=== PATIENT | male | born 1970 | race Caucasian/White ===

== ENCOUNTER 2018-03-03 14:49 | Inpatient (IN) | payer BC ==
[~2018-03-03] VITALS: Ht 160 cm; Wt 119.8 kg
[2018-03-03] MEDS ORDERED: METOPROLOL TARTRATE 5MG/5ML VIAL IV SCH (17:30)
[2018-03-03 18:03] LABS: CHLORIDE 104 mEq/L (98-107)
[2018-03-03 18:04] LABS: BASOPHILS % 0.6 % (0.0-2.0); EOSINOPHILS % 0.8 % (0.0-5.0); HEMATOCRIT. 44.9 % (42.0-52.0); HEMOGLOBIN. 14.7 g/dL (14.0-18.0); LYMPHOCYTES % 26.9 % (20.0-50.0); MEAN CORPUSCULAR HEMOGLOBIN 28.2 pg (28.0-32.0); MEAN CORPUSCULAR VOLUME 86.4 fL (80.0-94.0); MEAN PLATELET VOLUME 9.5 fl (7.4-10.4); MONOCYTES % 9.2 % (2.0-8.0); NEUTROPHILS % 62.5 % (40.0-76.0); PLATELET 346 x1000/uL (130-400); RED CELL DISTRIBUTION WIDTH 14.5 % (11.6-14.6)
[2018-03-03] MEDS ORDERED: ASPIRIN 81MG TABLET PO ONE (19:00)
[2018-03-03 22:00] VITALS: BP 115/90
[2018-03-03 22:12] VITALS: BP 115/90
[2018-03-04] VITALS: BP 110/82
[2018-03-04] MEDS ORDERED: ACETAMINOPHEN 650MG/20.3ML UDC PO PRN (01:00)
[2018-03-04] MEDS ORDERED: HYDROCODONE/ACETAMINOPHEN 5/325MG TABLET PO PRN (01:00)
[2018-03-04] MEDS ORDERED: ENOXAPARIN 40MG/0.4ML SYR SUBCUT ONE (01:45)
[2018-03-04] MEDS: METOPROLOL TARTRATE 50MG TABLET PO SCH ×3 (01:56→21:06)
[2018-03-04] MEDS: ENOXAPARIN 120MG/0.8ML SYR SUBCUT SCH ×2 (02:24→17:41)
[2018-03-04] MEDS: CEFTRIAXONE 1 G PREMIX 50 ML IV SCH (02:25)
[2018-03-04 04:00] VITALS: BP 108/91
[2018-03-04 07:06] LABS: BASOPHILS % 1.3 % (0.0-2.0); EOSINOPHILS % 0.9 % (0.0-5.0); HEMATOCRIT. 42.6 % (42.0-52.0); HEMOGLOBIN. 13.8 g/dL (14.0-18.0); LYMPHOCYTES % 27.3 % (20.0-50.0); MEAN CORPUSCULAR HEMOGLOBIN 28.1 pg (28.0-32.0); MEAN CORPUSCULAR VOLUME 86.6 fL (80.0-94.0); MEAN PLATELET VOLUME 9.9 fl (7.4-10.4); MONOCYTES % 10.1 % (2.0-8.0); NEUTROPHILS % 60.4 % (40.0-76.0); PLATELET 369 x1000/uL (130-400); RED BLOOD CELL COUNT 4.92 mill/uL (4.7-6.1); RED CELL DISTRIBUTION WIDTH 14.9 % (11.6-14.6)
[2018-03-04 07:18] LABS: CHLORIDE 103 mEq/L (98-107)
[2018-03-04 07:39] LABS: LDL CHOLESTEROL 85 mg/dL (5-100)
[2018-03-04 07:43] LABS: HDL CHOLESTEROL 25 mg/dL (40-59)
[2018-03-04 07:47] LABS: VITAMIN B12 SERUM 649 pg/mL (211-911)
[2018-03-04 08:29] VITALS: BP 114/86
[2018-03-04] MEDS: ASPIRIN 81MG TABLET PO SCH (08:48)
[2018-03-04] MEDS ORDERED: ENOXAPARIN 40MG/0.4ML SYR SUBCUT SCH (09:00)
[2018-03-04] MEDS ORDERED: ENOXAPARIN 30MG/0.3ML SYR SUBCUT SCH (09:00)
[2018-03-04 12:00] VITALS: BP 113/80
[2018-03-04 16:00] VITALS: BP 109/75
[2018-03-04] MEDS: FUROSEMIDE 40MG/4ML VIAL IVP SCH ×2 (17:40→21:05)
[2018-03-04 20:00] VITALS: BP 124/74
[2018-03-04 21:20] LABS: *AMPHETAMINES SCREEN URINE NEGATIVE (NEGATIVE); *BARBITURATES SCREEN URINE NEGATIVE (NEGATIVE); *BENZODIAZEPINES SCREEN URINE NEGATIVE (NEGATIVE); *COCAINE SCREEN URINE NEGATIVE (NEGATIVE); METHADONE URINE SCREEN NEGATIVE (NEGATIVE); OPIATES URINE SCREEN NEGATIVE (NEGATIVE); PHENCYCLIDINE URINE SCREEN NEGATIVE (NEGATIVE)
[2018-03-04 21:21] LABS: CANNABINOID URINE SCREEN NEGATIVE (NEGATIVE)
[2018-03-05] VITALS: BP 107/74
[2018-03-05] MEDS: ENOXAPARIN 120MG/0.8ML SYR SUBCUT SCH ×2 (01:08→17:03)
[2018-03-05] MEDS: CEFTRIAXONE 1 G PREMIX 50 ML IV SCH (03:56)
[2018-03-05 04:00] VITALS: BP 114/72
[2018-03-05] MEDS: FUROSEMIDE 40MG/4ML VIAL IVP SCH ×2 (07:13→17:03)
[2018-03-05 07:24] LABS: D-DIMER 0.48 mg/L FEU (<0.50); INR 1.2; PROTHROMBIN TIME 11.9 sec (9.1-11.1)
[2018-03-05 07:25] LABS: BASOPHILS % 1.1 % (0.0-2.0); EOSINOPHILS % 0.6 % (0.0-5.0); HEMATOCRIT. 44.4 % (42.0-52.0); HEMOGLOBIN. 14.6 g/dL (14.0-18.0); LYMPHOCYTES % 29.1 % (20.0-50.0); MEAN CORPUSCULAR HEMOGLOBIN 28.2 pg (28.0-32.0); MEAN CORPUSCULAR VOLUME 85.8 fL (80.0-94.0); MEAN PLATELET VOLUME 9.1 fl (7.4-10.4); MONOCYTES % 10.7 % (2.0-8.0); NEUTROPHILS % 58.5 % (40.0-76.0); PLATELET 329 x1000/uL (130-400); RED BLOOD CELL COUNT 5.17 mill/uL (4.7-6.1); RED CELL DISTRIBUTION WIDTH 14.3 % (11.6-14.6)
[2018-03-05 07:47] LABS: CHLORIDE 100 mEq/L (98-107)
[2018-03-05 08:16] LABS: CREATINE KINASE 43 IU/L (39-308)
[2018-03-05 08:17] LABS: CREATINE KINASE MB FRACTION 1.1 ng/mL (0.5-3.6); HDL CHOLESTEROL 26 mg/dL (40-59)
[2018-03-05 08:19] LABS: LDL CHOLESTEROL 80 mg/dL (5-100)
[2018-03-05 08:25] VITALS: BP 120/93
[2018-03-05] MEDS: METOPROLOL TARTRATE 50MG TABLET PO SCH (08:27)
[2018-03-05] MEDS: ASPIRIN 81MG TABLET PO SCH (08:27)
[2018-03-05 11:55] VITALS: BP 92/68
[2018-03-05] MEDS ORDERED: REGADENOSON 0.4 MG/5 ML IV NR (14:45)
[2018-03-05 16:46] VITALS: BP 118/88
[2018-03-05] MEDS: LOSARTAN POTASSIUM 25 MG TABLET PO SCH (17:04)
[2018-03-05 20:00] VITALS: BP 115/80
[2018-03-05] MEDS: CARVEDILOL 6.25 MG TABLET PO SCH (20:57)
[2018-03-06] VITALS: BP 112/70
[2018-03-06] MEDS: ENOXAPARIN 120MG/0.8ML SYR SUBCUT SCH ×2 (03:01→17:00)
[2018-03-06] MEDS: CEFTRIAXONE 1 G PREMIX 50 ML IV SCH (03:01)
[2018-03-06 04:00] VITALS: BP 108/81
[2018-03-06] MEDS: FUROSEMIDE 40MG/4ML VIAL IVP SCH (06:17)
[2018-03-06 07:02] LABS: EOSINOPHILS % 1.8 % (0.0-5.0); HEMATOCRIT. 46.4 % (42.0-52.0); HEMOGLOBIN. 14.9 g/dL (14.0-18.0); LYMPHOCYTES % 25.5 % (20.0-50.0); MEAN PLATELET VOLUME 9.3 fl (7.4-10.4); MONOCYTES % 7.9 % (2.0-8.0); NEUTROPHILS % 63.8 % (40.0-76.0); PLATELET 345 x1000/uL (130-400); RED BLOOD CELL COUNT 5.33 mill/uL (4.7-6.1); RED CELL DISTRIBUTION WIDTH 14.9 % (11.6-14.6)
[2018-03-06 07:40] LABS: CHLORIDE 99 mEq/L (98-107)
[2018-03-06 07:48] LABS: CREATINE KINASE 39 IU/L (39-308)
[2018-03-06 08:00] VITALS: BP 101/73
[2018-03-06] MEDS: LOSARTAN POTASSIUM 25 MG TABLET PO SCH (08:46)
[2018-03-06] MEDS: CARVEDILOL 6.25 MG TABLET PO SCH ×3 (08:46→21:24)
[2018-03-06] MEDS: ASPIRIN 81MG TABLET PO SCH (08:52)
[2018-03-06] MEDS ORDERED: REGADENOSON 0.4 MG/5 ML IV ONE (10:03)
[2018-03-06 12:00] VITALS: BP 134/71
[2018-03-06 16:00] VITALS: BP 118/83
[2018-03-06] MEDS: AMIODARONE HCL 200 MG TABLET PO SCH ×2 (16:58→21:23)
[2018-03-06 20:00] VITALS: BP 118/73
[2018-03-07] VITALS: BP 120/76
[2018-03-07] MEDS: CEFTRIAXONE 1 G PREMIX 50 ML IV SCH (02:12)
[2018-03-07] MEDS: ENOXAPARIN 120MG/0.8ML SYR SUBCUT SCH (02:12)
[2018-03-07 04:00] VITALS: BP 122/70
[2018-03-07] MEDS: CARVEDILOL 6.25 MG TABLET PO SCH ×2 (06:28→14:24)
[2018-03-07 06:46] LABS: BASOPHILS % 1.2 % (0.0-2.0); EOSINOPHILS % 1.6 % (0.0-5.0); HEMATOCRIT. 42.9 % (42.0-52.0); HEMOGLOBIN. 14.1 g/dL (14.0-18.0); MEAN CORPUSCULAR HEMOGLOBIN 28.4 pg (28.0-32.0); MEAN CORPUSCULAR VOLUME 86.5 fL (80.0-94.0); MEAN PLATELET VOLUME 9.1 fl (7.4-10.4); MONOCYTES % 9.7 % (2.0-8.0); NEUTROPHILS % 58.5 % (40.0-76.0); PLATELET 350 x1000/uL (130-400); RED BLOOD CELL COUNT 4.95 mill/uL (4.7-6.1); RED CELL DISTRIBUTION WIDTH 14.8 % (11.6-14.6)
[2018-03-07 07:08] LABS: CHLORIDE 101 mEq/L (98-107)
[2018-03-07 08:00] VITALS: BP 112/76
[2018-03-07] MEDS: LOSARTAN POTASSIUM 25 MG TABLET PO SCH (08:21)
[2018-03-07] MEDS: AMIODARONE HCL 200 MG TABLET PO SCH (08:21)
[2018-03-07] MEDS: ASPIRIN 81MG TABLET PO SCH (08:21)
[2018-03-07 15:18] VITALS: BP 118/83
[2018-03-07] MEDS ORDERED: RIVAROXABAN 20 MG TABLET PO SCH (17:00)
== END 2018-03-07 17:25 | disposition home or self-care (01) | DRG 292 ==
LOC: ER 18:26 → 5WST 18:58 → ENRESERV 20:41
PROVIDERS: ADMIT Internal Medicine; ATTEND Internal Medicine
DX: I11.0 Hypertensive heart disease with heart failure (principal); E46 Unspecified protein-calorie malnutrition; I31.3 Pericardial effusion (noninflammatory); Z68.42 Body mass index [BMI] 45.0-49.9, adult; I47.2 Ventricular tachycardia; I48.91 Unspecified atrial fibrillation; I20.9 Angina pectoris, unspecified; D72.829 Elevated white blood cell count, unspecified; E11.65 Type 2 diabetes mellitus with hyperglycemia; F14.10 Cocaine abuse, uncomplicated; E66.01 Morbid (severe) obesity due to excess calories; R74.0 Nonspecific elevation of levels of transaminase and lactic acid dehydrogenase [LDH]; I25.5 Ischemic cardiomyopathy; R79.89 Other specified abnormal findings of blood chemistry; I49.3 Ventricular premature depolarization; I50.9 Heart failure, unspecified; Z79.01 Long term (current) use of anticoagulants; Z79.02 Long term (current) use of antithrombotics/antiplatelets
CPT/HCPCS: 36415; 71045; 78452; 80053; 80061; 80305; 82550; 82553; 82607; 83036; 83735; 83880; 84443; 84484; 85025; 85379; 85610; 87040; 87086; 93005; 93017; 93306; 93970; 96374; 99291; A9500; J0696; J1650; J1940; J2785; J3490; J7040

== ENCOUNTER 2020-06-25 15:06 | Emergency (ER) | payer BC, OTHER ==
[~2020-06-25] VITALS: Ht 160 cm; Wt 120.0 kg
[2020-06-25] MEDS ORDERED: KETOROLAC 60MG/2ML VIAL IM ONE (15:30)
[2020-06-25] MEDS ORDERED: HYDROCODONE/ACETAMINOPHEN 5/325MG TABLET PO ONE (15:30)
[2020-06-25 17:29] VITALS: BP 135/83
== END 2020-06-25 17:31 | disposition home or self-care (01) ==
LOC: ER 15:06
DX: M54.5 Low back pain (principal); E11.9 Type 2 diabetes mellitus without complications; I48.91 Unspecified atrial fibrillation; F14.10 Cocaine abuse, uncomplicated
CPT/HCPCS: 72100; 96372; 99283; J1885